=== PATIENT | male | born 1950 | race African-American/Black ===

== ENCOUNTER 2016-09-10 21:48 | Inpatient (IN) | payer MEDICARE, OTHER ==
[~2016-09-10] VITALS: Ht 193 cm; Wt 68.0 kg
[~2016-09-10 21:48] MED LIST: ACET-784 PO; ALBU0.424 IH; AMLO-512 PO; BISA5TAB12 PO; HEPA500015 SQ; IPRNEB IH; LISI-661 PO; MOM30 PO; MULT-29 PO; TERB12CR3 TP; [UNRECOGNIZED DRUG - CODE] TP
[2016-09-10] MEDS ORDERED: ATOR10TA84 PO (22:00)
[2016-09-10] MEDS ORDERED: METO-323 PO (22:00)
[2016-09-10] MEDS ORDERED: PROZ10 PO (22:00)
[2016-09-10] MEDS ORDERED: IPRATROPIUM BROMIDE 0.5 MG/2.5 ML NEB SOLUTION NEB ONE (22:30)
[2016-09-10] MEDS ORDERED: ALBUTEROL SULFATE 5 MG/ML 20 ML NEB SOLN [BULK] NEB ONE (22:30)
[2016-09-10] MEDS ORDERED: 0.9% SODIUM CHLORIDE 15 ML NEB SOLUTION NEB ONE (22:33)
[2016-09-10] MEDS ORDERED: MethylPREDNISolone SOD SUCC 125 MG/2 ML VIAL IVP ONE (22:45)
[2016-09-10] MEDS ORDERED: HYDROmorphone 2 MG/ML SYRINGE IVP ONE (22:45)
[2016-09-10] MEDS ORDERED: ONDANSETRON HCL 4 MG/2 ML VIAL IVP ONE (22:45)
[2016-09-10] MEDS ORDERED: ALBUTEROL SULFATE 2.5 MG/0.5 ML NEB SOLUTION NEB PRN (23:15)
[2016-09-10] MEDS ORDERED: ONDANSETRON HCL 4 MG/2 ML VIAL IVP PRN (23:15)
[2016-09-10 23:46] LABS: INFLUENZA TYPE B NEGATIVE FOR TYPE B (NEGATIVE)
[2016-09-11 00:06] LABS: ABG A-A DIFF O2 353.4 mmHg (10-20.0); ABG BASE EXCESS -8.6 mmol/L (-2.0-3.0); ABG HCO3 18.1 mmol/L (22.0-26.0); ABG OXYHEMOGLOBIN 95.4 % (94.0-100.0); ABG PCO2 38 mmHg (35-45); ABG PH 7.291 (7.35-7.450)
[2016-09-11 00:07] LABS: ALLEN TEST, BLOOD GAS Positive
[2016-09-11] MEDS: HEPARIN SODIUM,PORCINE 5,000 UNITS/ML VIAL SQ SCH ×3 (00:40→17:05)
[2016-09-11] MEDS: LEVOFLOXACIN 500 MG/D5% WATER 100 ML IV SCH (00:40)
[2016-09-11 01:13] LABS: ANION GAP 18 mmol/L (8-16); CALCIUM, TOTAL 8.2 mg/dL (8.8-10.5); CARBON DIOXIDE 20 mmol/L (22-29); CHLORIDE 101 mmol/L (98-107); CREATININE 0.64 mg/dL (0.60-1.30); GLOMERULAR FILTR. RATE CALC > 60 mL/min (>60); POTASSIUM 3.2 mmol/L (3.5-5.1); SODIUM SERUM 139 mmol/L (136-145); UREA NITROGEN, BLOOD 11 mg/dL (7-18)
[2016-09-11 01:13] LABS: APPEARANCE,URINE CLOUDY (CLEAR); GLUCOSE, URINE (UA) NEGATIVE (NEGATIVE); KETONES,URINE NEGATIVE (NEGATIVE); LEUKOCYTE ESTERASE ,URINE NEGATIVE (NEGATIVE); OCCULT BLOOD,URINE TRACE (NEGATIVE); PH,URINE 6.5 (5.0-8.0); PROTEIN,URINE POS 1+ (NEGATIVE)
[2016-09-11 01:15] LABS: BASOPHILS % (AUTO) 0.4 % (0.0-2.0); EOSINOPHILS % (AUTO) 0 % (1.0-6.0); LYMPHOCYTES # (AUTO) 1.9 K/uL (1.0-4.8); LYMPHOCYTES % (AUTO) 25.8 % (22.0-44.0); MEAN CORPUSCULAR HEMOGLOBIN 30.3 pg (26.0-34.0); MEAN CORPUSCULAR VOLUME 98 fL (80-100); MONOCYTES # (AUTO) 0.2 K/uL (0.1-1.0); MONOCYTES % (AUTO) 2.1 % (2.0-9.0); NEUTROPHILS # (AUTO) 5.3 K/uL (1.8-7.7); NEUTROPHILS % (AUTO) 71.7 % (40.0-70.0); PLATELET COUNT (AUTO) 296 K/uL (150-450); RED BLOOD CELL COUNT(AUTO) 4.29 MIL/uL (4.50-5.90); RED CELL DISTRIBUTION WIDTH 18.8 % (11.5-14.5); WHITE BLOOD COUNT (AUTO) 7.3 K/uL (4.5-11.0)
[2016-09-11 01:22] LABS: ADD UA MICROSCOPIC YES
[2016-09-11 01:32] LABS: SQUAMOUS EPITHELIAL CELL,UR Few /LPF (None Seen)
[2016-09-11 01:37] LABS: LACTIC ACID 5.5 mmol/L (0.4-2.0)
[2016-09-11 01:40] LABS: ALANINE AMINOTRANSFERASE 32 U/L (12-78); ALBUMIN 3.7 g/dL (3.4-5.0); ASPARTATE AMINOTRANSFERASE 40 U/L (15-37); BILIRUBIN,TOTAL 0.4 mg/dL (0.1-1.0); CREATINE KINASE MB 3.3 ng/mL (0-5); CREATINE KINASE, TOTAL 176 U/L (39-308); TOTAL PROTEIN, SERUM 8.7 g/dL (6.4-8.2)
[2016-09-11 01:47] LABS: B-TYPE NATRIURETIC PEPTIDE 41 pg/mL (0-100)
[2016-09-11] MEDS: ALBUTEROL SULFATE 2.5 MG/0.5 ML NEB SOLUTION NEB SCH ×4 (02:04→20:29)
[2016-09-11] MEDS: IPRATROPIUM BROMIDE 0.5 MG/2.5 ML NEB SOLUTION NEB SCH ×4 (02:04→20:29)
[2016-09-11] MEDS ORDERED: 0.9% SODIUM CHLORIDE 5 ML NEB SOLUTION NEB ONE (02:07)
[2016-09-11 02:27] LABS: RBC MORPHOLOGY COMMENT ABNORMAL RBC MORPH
[2016-09-11 03:10] LABS: REFLEX LACTIC ACID? YES YES
[2016-09-11] MEDS: MethylPREDNISolone SOD SUCC 125 MG/2 ML VIAL IVP SCH ×3 (06:05→17:05)
[2016-09-11] MEDS: OxyCODONE HCL/ACETAMINOPHEN 5-325 MG TABLET PO PRN ×3 (06:09→19:50)
[2016-09-11 06:33] LABS: ALANINE AMINOTRANSFERASE 35 U/L (12-78); ALBUMIN 3.5 g/dL (3.4-5.0); ANION GAP 16 mmol/L (8-16); ASPARTATE AMINOTRANSFERASE 36 U/L (15-37); BILIRUBIN,TOTAL 0.3 mg/dL (0.1-1.0); CALCIUM, TOTAL 7.9 mg/dL (8.8-10.5); CARBON DIOXIDE 23 mmol/L (22-29); CHLORIDE 103 mmol/L (98-107); CREATININE 0.93 mg/dL (0.60-1.30); GLOMERULAR FILTR. RATE CALC > 60 mL/min (>60); POTASSIUM 3.6 mmol/L (3.5-5.1); SODIUM SERUM 142 mmol/L (136-145); TOTAL PROTEIN, SERUM 8.3 g/dL (6.4-8.2); UREA NITROGEN, BLOOD 12 mg/dL (7-18)
[2016-09-11 06:58] LABS: EOSINOPHILS % (AUTO) 0 % (1.0-6.0); HEMATOCRIT 39.2 % (41-53); HEMOGLOBIN 12.6 g/dL (13.5-17.5); LYMPHOCYTES # (AUTO) 0.9 K/uL (1.0-4.8); LYMPHOCYTES % (AUTO) 14.9 % (22.0-44.0); MEAN CORPUSCULAR HEMOGLOBIN 31.2 pg (26.0-34.0); MEAN CORPUSCULAR HGB CONC 32.3 G/dL (31.0-37.0); MEAN CORPUSCULAR VOLUME 97 fL (80-100); MONOCYTES # (AUTO) 0.1 K/uL (0.1-1.0); MONOCYTES % (AUTO) 0.8 % (2.0-9.0); NEUTROPHILS # (AUTO) 5.1 K/uL (1.8-7.7); NEUTROPHILS % (AUTO) 84.3 % (40.0-70.0); PLATELET COUNT (AUTO) 261 K/uL (150-450); RED BLOOD CELL COUNT(AUTO) 4.05 MIL/uL (4.50-5.90); RED CELL DISTRIBUTION WIDTH 18.9 % (11.5-14.5); WHITE BLOOD COUNT (AUTO) 6.1 K/uL (4.5-11.0)
[2016-09-11] MEDS: ACETAMINOPHEN 325 MG TABLET PO PRN ×2 (07:38→14:54)
[2016-09-11] MEDS: PANTOPRAZOLE SODIUM 40 MG DR TABLET PO SCH (08:29)
[2016-09-11] MEDS: ASPIRIN 81 MG CHEWABLE TABLET PO SCH (13:42)
[2016-09-11 14:30] VITALS: BP 137/80
[2016-09-11 16:16] VITALS: BP 123/76
[2016-09-11 19:44] VITALS: BP 112/62
[2016-09-11] MEDS: SIMVASTATIN 20 MG TABLET PO SCH (19:50)
[2016-09-11 23:20] VITALS: BP 119/76
[2016-09-12] MEDS: HEPARIN SODIUM,PORCINE 5,000 UNITS/ML VIAL SQ SCH ×4 (00:07→23:26)
[2016-09-12] MEDS: MethylPREDNISolone SOD SUCC 125 MG/2 ML VIAL IVP SCH ×3 (00:07→12:10)
[2016-09-12] MEDS: LEVOFLOXACIN 500 MG/D5% WATER 100 ML IV SCH (00:08)
[2016-09-12] MEDS: OxyCODONE HCL/ACETAMINOPHEN 5-325 MG TABLET PO PRN ×6 (00:08→19:38)
[2016-09-12] MEDS: ZOLPIDEM TARTRATE 10 MG TABLET PO PRN ×2 (00:08→23:25)
[2016-09-12] MEDS: IPRATROPIUM BROMIDE 0.5 MG/2.5 ML NEB SOLUTION NEB SCH ×4 (02:09→20:13)
[2016-09-12] MEDS: ALBUTEROL SULFATE 2.5 MG/0.5 ML NEB SOLUTION NEB SCH ×4 (02:09→20:13)
[2016-09-12 04:45] VITALS: BP 132/83
[2016-09-12 05:05] VITALS: BP 140/71
[2016-09-12 06:57] LABS: BASOPHILS % (AUTO) 0.2 % (0.0-2.0); EOSINOPHILS % (AUTO) 0 % (1.0-6.0); HEMATOCRIT 38.9 % (41-53); HEMOGLOBIN 12.1 g/dL (13.5-17.5); LYMPHOCYTES % (AUTO) 5.4 % (22.0-44.0); MEAN CORPUSCULAR HEMOGLOBIN 30.8 pg (26.0-34.0); MEAN CORPUSCULAR HGB CONC 31.2 G/dL (31.0-37.0); MEAN CORPUSCULAR VOLUME 99 fL (80-100); MONOCYTES # (AUTO) 0.7 K/uL (0.1-1.0); MONOCYTES % (AUTO) 4.1 % (2.0-9.0); NEUTROPHILS # (AUTO) 16.4 K/uL (1.8-7.7); PLATELET COUNT (AUTO) 219 K/uL (150-450); RED BLOOD CELL COUNT(AUTO) 3.94 MIL/uL (4.50-5.90); RED CELL DISTRIBUTION WIDTH 18.8 % (11.5-14.5); WHITE BLOOD COUNT (AUTO) 18.2 K/uL (4.5-11.0)
[2016-09-12 06:59] LABS: NEUTROPHILS % (AUTO) 90.3 % (40.0-70.0)
[2016-09-12 07:36] LABS: RBC MORPHOLOGY COMMENT ABNORMAL RBC MORPH
[2016-09-12 07:50] VITALS: BP 134/93
[2016-09-12 07:52] LABS: ALANINE AMINOTRANSFERASE 27 U/L (12-78); ALBUMIN 3.3 g/dL (3.4-5.0); ANION GAP 10 mmol/L (8-16); ASPARTATE AMINOTRANSFERASE 29 U/L (15-37); BILIRUBIN,TOTAL 0.3 mg/dL (0.1-1.0); CALCIUM, TOTAL 8.4 mg/dL (8.8-10.5); CARBON DIOXIDE 25 mmol/L (22-29); CHLORIDE 101 mmol/L (98-107); CREATININE 0.97 mg/dL (0.60-1.30); GLOMERULAR FILTR. RATE CALC > 60 mL/min (>60); POTASSIUM 5.1 mmol/L (3.5-5.1); SODIUM SERUM 136 mmol/L (136-145); TOTAL PROTEIN, SERUM 7.8 g/dL (6.4-8.2); UREA NITROGEN, BLOOD 30 mg/dL (7-18)
[2016-09-12] MEDS: ASPIRIN 81 MG CHEWABLE TABLET PO SCH (08:51)
[2016-09-12] MEDS: PANTOPRAZOLE SODIUM 40 MG DR TABLET PO SCH (08:51)
[2016-09-12 11:15] VITALS: BP 124/81
[2016-09-12 15:10] VITALS: BP 135/72
[2016-09-12] MEDS: SIMVASTATIN 20 MG TABLET PO SCH (19:38)
[2016-09-12] MEDS ORDERED: SODIUM CHLORIDE 0.9% 250 ML IV ONE (19:56)
[2016-09-12 20:09] VITALS: BP 115/89
[2016-09-13 00:10] VITALS: BP 106/65
[2016-09-13] MEDS: ALBUTEROL SULFATE 2.5 MG/0.5 ML NEB SOLUTION NEB SCH ×3 (02:07→14:16)
[2016-09-13] MEDS: IPRATROPIUM BROMIDE 0.5 MG/2.5 ML NEB SOLUTION NEB SCH ×3 (02:07→14:16)
[2016-09-13 03:15] VITALS: BP 118/72
[2016-09-13] MEDS: OxyCODONE HCL/ACETAMINOPHEN 5-325 MG TABLET PO PRN ×2 (05:47→11:43)
[2016-09-13 07:08] LABS: BASOPHILS % (AUTO) 0.1 % (0.0-2.0); EOSINOPHILS % (AUTO) 0 % (1.0-6.0); HEMATOCRIT 36.1 % (41-53); HEMOGLOBIN 11.4 g/dL (13.5-17.5); LYMPHOCYTES # (AUTO) 1.6 K/uL (1.0-4.8); LYMPHOCYTES % (AUTO) 9.5 % (22.0-44.0); MEAN CORPUSCULAR HEMOGLOBIN 31.1 pg (26.0-34.0); MEAN CORPUSCULAR HGB CONC 31.7 G/dL (31.0-37.0); MEAN CORPUSCULAR VOLUME 98 fL (80-100); MONOCYTES # (AUTO) 1.1 K/uL (0.1-1.0); MONOCYTES % (AUTO) 6.5 % (2.0-9.0); NEUTROPHILS # (AUTO) 14.1 K/uL (1.8-7.7); NEUTROPHILS % (AUTO) 83.9 % (40.0-70.0); PLATELET COUNT (AUTO) 238 K/uL (150-450); RED BLOOD CELL COUNT(AUTO) 3.68 MIL/uL (4.50-5.90); RED CELL DISTRIBUTION WIDTH 19.2 % (11.5-14.5); WHITE BLOOD COUNT (AUTO) 16.8 K/uL (4.5-11.0)
[2016-09-13 07:18] VITALS: BP 114/77
[2016-09-13 07:28] LABS: ALANINE AMINOTRANSFERASE 24 U/L (12-78); ALBUMIN 3.1 g/dL (3.4-5.0); ANION GAP 9 mmol/L (8-16); ASPARTATE AMINOTRANSFERASE 25 U/L (15-37); BILIRUBIN,TOTAL 0.2 mg/dL (0.1-1.0); CALCIUM, TOTAL 8.5 mg/dL (8.8-10.5); CARBON DIOXIDE 26 mmol/L (22-29); CHLORIDE 105 mmol/L (98-107); CREATININE 0.77 mg/dL (0.60-1.30); GLOMERULAR FILTR. RATE CALC > 60 mL/min (>60); POTASSIUM 4.4 mmol/L (3.5-5.1); SODIUM SERUM 140 mmol/L (136-145); UREA NITROGEN, BLOOD 26 mg/dL (7-18)
[2016-09-13] MEDS: HEPARIN SODIUM,PORCINE 5,000 UNITS/ML VIAL SQ SCH (08:29)
[2016-09-13] MEDS: ASPIRIN 81 MG CHEWABLE TABLET PO SCH (08:30)
[2016-09-13] MEDS: PANTOPRAZOLE SODIUM 40 MG DR TABLET PO SCH (08:33)
[2016-09-13] MEDS ORDERED: PredniSONE 10 MG TABLET PO SCH (09:00)
[2016-09-13] MEDS ORDERED: LEVOFLOXACIN 500 MG TABLET PO SCH (09:00)
[2016-09-13 09:11] LABS: RBC MORPHOLOGY COMMENT ABNORMAL RBC MORPH
[2016-09-13 11:53] VITALS: BP 109/71
== END 2016-09-13 15:05 | disposition home or self-care (01) | DRG 189 ==
LOC: EMS 21:52 → 6N 09-11 13:12
PROVIDERS: ADMIT Hospitalist; ATTEND Hospitalist
DX: J96.00 Acute respiratory failure, unspecified whether with hypoxia or hypercapnia (principal); E43 Unspecified severe protein-calorie malnutrition; J44.0 Chronic obstructive pulmonary disease with (acute) lower respiratory infection; I69.351 Hemiplegia and hemiparesis following cerebral infarction affecting right dominant side; Z68.1 Body mass index [BMI] 19.9 or less, adult; J44.1 Chronic obstructive pulmonary disease with (acute) exacerbation; J20.9 Acute bronchitis, unspecified; E78.00 Pure hypercholesterolemia, unspecified; I10 Essential (primary) hypertension; E78.5 Hyperlipidemia, unspecified; N40.0 Benign prostatic hyperplasia without lower urinary tract symptoms; M19.90 Unspecified osteoarthritis, unspecified site; E87.6 Hypokalemia; I73.9 Peripheral vascular disease, unspecified; I69.320 Aphasia following cerebral infarction; R00.0 Tachycardia, unspecified; Z86.69 Personal history of other diseases of the nervous system and sense organs; I69.321 Dysphasia following cerebral infarction; Z79.899 Other long term (current) drug therapy; Z98.890 Other specified postprocedural states; Z79.1 Long term (current) use of non-steroidal anti-inflammatories (NSAID); Z79.01 Long term (current) use of anticoagulants; Z90.81 Acquired absence of spleen; Z87.891 Personal history of nicotine dependence
CPT/HCPCS: 82805; 83605; 87040; 87086; 87804; 93005; 93926; 94640; 94644; 96365; 96375; 96376; 97163; 99285; J1170; J1644; J1956; J2405; J2930; J7050

== ENCOUNTER 2016-11-27 07:31 | Emergency (ER) | payer MEDICARE, OTHER ==
[~2016-11-27] VITALS: Ht 170.2 cm; Wt 60.9 kg
[~2016-11-27 07:31] MED LIST changes: -ACET-784 PO; -AMLO-512 PO; +ATOR10TA84 PO; -BISA5TAB12 PO; -LISI-661 PO; +PROZ10 PO; -TERB12CR3 TP; -[UNRECOGNIZED DRUG - CODE] TP
[2016-11-27] MEDS ORDERED: PredniSONE 20 MG TABLET PO ONE (09:00)
[2016-11-27] MEDS ORDERED: HYDROCODONE/ACETAMINOPHEN 5-325 MG TABLET PO ONE (10:00)
[2016-11-27 11:44] VITALS: BP 105/69
== END 2016-11-27 12:14 | disposition home or self-care (01) ==
LOC: EMS 07:33
DX: S82.101A Unspecified fracture of upper end of right tibia, initial encounter for closed fracture (principal); S82.831A Other fracture of upper and lower end of right fibula, initial encounter for closed fracture; E78.00 Pure hypercholesterolemia, unspecified; I10 Essential (primary) hypertension; J44.9 Chronic obstructive pulmonary disease, unspecified; N40.0 Benign prostatic hyperplasia without lower urinary tract symptoms; Z86.73 Personal history of transient ischemic attack (TIA), and cerebral infarction without residual deficits; Z98.890 Other specified postprocedural states; Z90.49 Acquired absence of other specified parts of digestive tract; W19.XXXA Unspecified fall, initial encounter; Y93.89 Activity, other specified; Y92.89 Other specified places as the place of occurrence of the external cause; Y99.8 Other external cause status; Z87.891 Personal history of nicotine dependence
CPT/HCPCS: 29505; 71010; 73562; 73700; 94640; 99284; J7512

== ENCOUNTER 2016-12-03 14:58 | Inpatient (IN) | payer MEDICARE, OTHER ==
[~2016-12-03] VITALS: Ht 193 cm; Wt 53.9 kg
[2016-12-03 17:37] LABS: EOSINOPHILS # (AUTO) 0.02 K/uL (0.00-0.70); EOSINOPHILS % (AUTO) 0.31 % (1.0-6.0); HEMATOCRIT 40.8 % (41-53); HEMOGLOBIN 12.9 g/dL (13.5-17.5); LYMPHOCYTES # (AUTO) 0.8 K/uL (1.0-4.8); LYMPHOCYTES % (AUTO) 16.1 % (22.0-44.0); MEAN CORPUSCULAR HEMOGLOBIN 31.2 pg (26.0-34.0); MEAN CORPUSCULAR HGB CONC 31.7 G/dL (31.0-37.0); MEAN CORPUSCULAR VOLUME 98 fL (80-100); MONOCYTES # (AUTO) 0.1 K/uL (0.1-1.0); MONOCYTES % (AUTO) 2.5 % (2.0-9.0); NEUTROPHILS # (AUTO) 4.1 K/uL (1.8-7.7); PLATELET COUNT (AUTO) 262 K/uL (150-450); RED BLOOD CELL COUNT(AUTO) 4.15 MIL/uL (4.50-5.90); RED CELL DISTRIBUTION WIDTH 16.2 % (11.5-14.5); WHITE BLOOD COUNT (AUTO) 5.1 K/uL (4.5-11.0)
[2016-12-03 18:02] LABS: ANION GAP 13 mmol/L (8-16); CALCIUM, TOTAL 9.5 mg/dL (8.8-10.5); CARBON DIOXIDE 25 mmol/L (22-29); CHLORIDE 101 mmol/L (98-107); CREATININE 1.13 mg/dL (0.60-1.30); GLOMERULAR FILTR. RATE CALC > 60 mL/min (>60); POTASSIUM 3.6 mmol/L (3.5-5.1); SODIUM SERUM 139 mmol/L (136-145); UREA NITROGEN, BLOOD 19 mg/dL (7-18)
[2016-12-03 18:09] LABS: ALANINE AMINOTRANSFERASE 29 U/L (12-78); ALBUMIN 3.5 g/dL (3.4-5.0); ASPARTATE AMINOTRANSFERASE 28 U/L (15-37); BILIRUBIN,TOTAL 0.4 mg/dL (0.1-1.0); TOTAL PROTEIN, SERUM 7.5 g/dL (6.4-8.2)
[2016-12-03] MEDS ORDERED: HYDROCODONE/ACETAMINOPHEN 5-325 MG TABLET PO ONE (19:00)
[2016-12-03 20:01] LABS: APPEARANCE,URINE CLOUDY (CLEAR); GLUCOSE, URINE (UA) NEGATIVE (NEGATIVE); KETONES,URINE NEGATIVE (NEGATIVE); LEUKOCYTE ESTERASE ,URINE SMALL (NEGATIVE); OCCULT BLOOD,URINE TRACE (NEGATIVE); PROTEIN,URINE POS 1+ (NEGATIVE)
[2016-12-03 20:50] LABS: HYALINE CASTS, URINE 0-2 /LPF (None Seen); SQUAMOUS EPITHELIAL CELL,UR Few /LPF (None Seen)
[2016-12-03 20:51] LABS: CALCIUM OXALATE CRYSTALS,UR Few /LPF (None Seen)
[2016-12-03] MEDS ORDERED: ONDANSETRON HCL 4 MG/2 ML VIAL IVP PRN ×2 (21:00→22:00)
[2016-12-03] MEDS ORDERED: ACETAMINOPHEN 325 MG TABLET PO PRN ×2 (21:00→22:00)
[2016-12-03] MEDS ORDERED: 0.9% SODIUM CHLORIDE 10 ML SYRINGE IVP PRN (21:00)
[2016-12-03 21:52] VITALS: BP 134/75
[2016-12-03 21:57] VITALS: BP 160/107
[2016-12-03] MEDS ORDERED: ZOLPIDEM TARTRATE 5 MG TABLET PO PRN (22:00)
[2016-12-03] MEDS ORDERED: BISACODYL 10 MG RECTAL RECTAL SUPPOSITORY PR PRN (22:00)
[2016-12-03] MEDS ORDERED: IPRATROPIUM BROMIDE 0.5 MG/2.5 ML NEB SOLUTION NEB PRN (22:00)
[2016-12-03] MEDS ORDERED: ALBUTEROL SULFATE 2.5 MG/0.5 ML NEB SOLUTION NEB PRN (22:00)
[2016-12-03] MEDS ORDERED: MAGNESIUM HYDROXIDE SUSPENSION 30 ML UDCUP PO PRN (22:00)
[2016-12-03] MEDS ORDERED: PNEUMOCOCCAL VACCINE POLYVALENT 0.5 ML VIAL [PPSV23] IM ONE (22:15)
[2016-12-04] VITALS (8 sets, daily range): BP systolic 124–194; BP diastolic 55–109
[2016-12-04] MEDS: HYDROCODONE/ACETAMINOPHEN 5-325 MG TABLET PO PRN ×5 (00:38→22:55)
[2016-12-04] MEDS: ATORVASTATIN CALCIUM 10 MG TABLET PO SCH (07:50)
[2016-12-04] MEDS: ASPIRIN 81 MG EC TABLET PO SCH (07:50)
[2016-12-04] MEDS: CEPHALEXIN MONOHYDRATE 500 MG CAPSULE PO SCH ×4 (07:50→20:11)
[2016-12-04] MEDS: MULTIVITAMINS WITH MINERALS, THERAPEUTIC TABLET PO SCH (07:50)
[2016-12-04] MEDS: DOCUSATE SODIUM 100 MG CAPSULE PO SCH ×2 (07:50→20:12)
[2016-12-04] MEDS: PANTOPRAZOLE SODIUM 40 MG/VIAL IVP SCH (07:51)
[2016-12-04] MEDS: MORPHINE SULFATE 2 MG/ML SYRINGE IVP PRN ×3 (07:51→19:56)
[2016-12-04] MEDS: HEPARIN SODIUM,PORCINE 5,000 UNITS/ML VIAL SQ SCH ×4 (07:51→23:00)
[2016-12-05] MEDS: MORPHINE SULFATE 2 MG/ML SYRINGE IVP PRN ×2 (02:22→10:01)
[2016-12-05 05:10] VITALS: BP 151/89
[2016-12-05 07:25] VITALS: BP 174/104
[2016-12-05] MEDS: PANTOPRAZOLE SODIUM 40 MG/VIAL IVP SCH (07:53)
[2016-12-05] MEDS: ATORVASTATIN CALCIUM 10 MG TABLET PO SCH (07:54)
[2016-12-05] MEDS: HEPARIN SODIUM,PORCINE 5,000 UNITS/ML VIAL SQ SCH ×2 (07:54→15:37)
[2016-12-05] MEDS: ASPIRIN 81 MG EC TABLET PO SCH (07:54)
[2016-12-05] MEDS: MULTIVITAMINS WITH MINERALS, THERAPEUTIC TABLET PO SCH (07:54)
[2016-12-05] MEDS: DOCUSATE SODIUM 100 MG CAPSULE PO SCH ×2 (07:54→20:11)
[2016-12-05] MEDS: CEPHALEXIN MONOHYDRATE 500 MG CAPSULE PO SCH ×4 (07:54→20:12)
[2016-12-05] MEDS: CloNIDine HCL 0.1 MG TABLET PO PRN (07:54)
[2016-12-05 11:35] VITALS: BP 159/95
[2016-12-05] MEDS: HYDROCODONE/ACETAMINOPHEN 5-325 MG TABLET PO PRN ×3 (11:48→20:11)
[2016-12-05 16:04] VITALS: BP 154/90
[2016-12-05 20:09] VITALS: BP 151/92
[2016-12-06] VITALS (7 sets, daily range): BP systolic 123–181; BP diastolic 87–99
[2016-12-06] MEDS: HEPARIN SODIUM,PORCINE 5,000 UNITS/ML VIAL SQ SCH ×4 (00:56→23:40)
[2016-12-06] MEDS: HYDROCODONE/ACETAMINOPHEN 5-325 MG TABLET PO PRN ×4 (01:32→23:36)
[2016-12-06] MEDS: ASPIRIN 81 MG EC TABLET PO SCH (08:25)
[2016-12-06] MEDS: CEPHALEXIN MONOHYDRATE 500 MG CAPSULE PO SCH (08:26)
[2016-12-06] MEDS: ATORVASTATIN CALCIUM 10 MG TABLET PO SCH (08:26)
[2016-12-06] MEDS: DOCUSATE SODIUM 100 MG CAPSULE PO SCH ×2 (08:26→21:24)
[2016-12-06] MEDS: MULTIVITAMINS WITH MINERALS, THERAPEUTIC TABLET PO SCH (08:26)
[2016-12-06] MEDS: PANTOPRAZOLE SODIUM 40 MG/VIAL IVP SCH (09:00)
[2016-12-07 00:06] VITALS: BP 146/95
[2016-12-07] MEDS: HYDROCODONE/ACETAMINOPHEN 5-325 MG TABLET PO PRN (04:59)
[2016-12-07 05:37] VITALS: BP 153/90
[2016-12-07] MEDS: CloNIDine HCL 0.1 MG TABLET PO PRN (07:57)
[2016-12-07] MEDS: ATORVASTATIN CALCIUM 10 MG TABLET PO SCH (07:57)
[2016-12-07] MEDS: PANTOPRAZOLE SODIUM 40 MG/VIAL IVP SCH (07:58)
[2016-12-07] MEDS: ASPIRIN 81 MG EC TABLET PO SCH (07:58)
[2016-12-07] MEDS: DOCUSATE SODIUM 100 MG CAPSULE PO SCH (07:58)
[2016-12-07] MEDS: MULTIVITAMINS WITH MINERALS, THERAPEUTIC TABLET PO SCH (08:07)
[2016-12-07] MEDS: HEPARIN SODIUM,PORCINE 5,000 UNITS/ML VIAL SQ SCH (08:07)
[2016-12-07 08:08] VITALS: BP 171/116
== END 2016-12-07 11:05 | disposition home or self-care (01) | DRG 312 ==
LOC: EMS 15:02 → 5S 21:04
PROVIDERS: ADMIT Hospitalist; ATTEND Hospitalist
DX: R55 Syncope and collapse (principal); E43 Unspecified severe protein-calorie malnutrition; N39.0 Urinary tract infection, site not specified; S82.101A Unspecified fracture of upper end of right tibia, initial encounter for closed fracture; E11.9 Type 2 diabetes mellitus without complications; M19.90 Unspecified osteoarthritis, unspecified site; J44.9 Chronic obstructive pulmonary disease, unspecified; E78.00 Pure hypercholesterolemia, unspecified; I10 Essential (primary) hypertension; S82.401A Unspecified fracture of shaft of right fibula, initial encounter for closed fracture; N40.0 Benign prostatic hyperplasia without lower urinary tract symptoms; R62.7 Adult failure to thrive; B96.20 Unspecified Escherichia coli [E. coli] as the cause of diseases classified elsewhere; Z86.73 Personal history of transient ischemic attack (TIA), and cerebral infarction without residual deficits; Z59.0 Homelessness; Z28.21 Immunization not carried out because of patient refusal; Z87.891 Personal history of nicotine dependence; Z72.89 Other problems related to lifestyle
CPT/HCPCS: 70450; 87086; 93005; 93308; 93880; 97162; 99285; C9113; G0480; J1644; J2270

== ENCOUNTER 2017-01-29 08:36 | Emergency (ER) | payer MEDICARE, OTHER ==
[~2017-01-29] VITALS: Ht 183.5 cm; Wt 63.6 kg
[2017-01-29] MEDS ORDERED: HYDROCODONE/ACETAMINOPHEN 5-325 MG TABLET PO ONE (09:30)
[2017-01-29 10:28] VITALS: BP 141/68
== END 2017-01-29 11:05 | disposition home or self-care (01) ==
LOC: EMS 08:39
DX: S93.401A Sprain of unspecified ligament of right ankle, initial encounter (principal); E78.00 Pure hypercholesterolemia, unspecified; J44.9 Chronic obstructive pulmonary disease, unspecified; I10 Essential (primary) hypertension; Z87.891 Personal history of nicotine dependence; W05.0XXA Fall from non-moving wheelchair, initial encounter; Y93.89 Activity, other specified; Y92.89 Other specified places as the place of occurrence of the external cause; Y99.8 Other external cause status
CPT/HCPCS: 99284